=== PATIENT | female | born 1940 | race African-American/Black ===

== ENCOUNTER 2020-09-09 10:26 | Outpatient (CLI) | payer MEDICARE, OTHER | END 2020-09-09 23:59 | disposition home or self-care (01) | LOC: RAD 10:26 | DX: K21.9 Gastro-esophageal reflux disease without esophagitis (principal) | CPT/HCPCS: 74220 ==

== ENCOUNTER 2020-12-31 09:01 | Emergency (ER) | payer MEDICARE, OTHER ==
[~2020-12-31] VITALS: Ht 165.1 cm; Wt 124.8 kg
[2020-12-31] MEDS ORDERED: dexamethasone sod phosphate 10mg/ml inj IV STA (09:41)
[2020-12-31] MEDS ORDERED: normal saline 1000ML IV soln IVB ONE (09:45)
[2020-12-31] MEDS ORDERED: ketorolac tromethamine 15mg/ml inj. IV ONE (09:45)
[2020-12-31] MEDS ORDERED: proCHLORperazine 10 MG/2 ml inj IV ONE (09:45)
[2020-12-31] MEDS ORDERED: PROC-8 PO (11:09)
[2020-12-31 11:18] VITALS: BP 147/71
== END 2020-12-31 11:19 | disposition home or self-care (01) ==
LOC: ER 09:03
DX: G43.909 Migraine, unspecified, not intractable, without status migrainosus (principal); Z88.5 Allergy status to narcotic agent; Z79.899 Other long term (current) drug therapy
CPT/HCPCS: 96361; 96374; 96375; 99284; J0780; J1100; J1885; J7030

== ENCOUNTER 2022-04-30 08:15 | Emergency (ER) | payer BC, MEDICARE, OTHER ==
[~2022-04-30] VITALS: Ht 165.1 cm; Wt 120.0 kg
[~2022-04-30 08:15] MED LIST: PROC-8 PO
[2022-04-30 08:23] VITALS: BP 156/80
[2022-04-30] MEDS ORDERED: dexamethasone sod phosphate 10mg/ml inj IV STA (10:22)
[2022-04-30] MEDS ORDERED: normal saline 1000ML IV soln IVB ONE (10:25)
[2022-04-30] MEDS ORDERED: metoclopramide 5 mg/ml inj IV ONE (10:25)
[2022-04-30] MEDS ORDERED: ketorolac trometh. 30mg/ml inj. IV ONE (10:25)
[2022-04-30] MEDS ORDERED: LORazepam 2 mg/ml vial IV ONE (10:25)
== END 2022-04-30 12:28 | disposition home or self-care (01) ==
LOC: ER 08:16
DX: G43.909 Migraine, unspecified, not intractable, without status migrainosus (principal); M54.9 Dorsalgia, unspecified; M54.2 Cervicalgia; K21.9 Gastro-esophageal reflux disease without esophagitis; Z88.5 Allergy status to narcotic agent; Z79.899 Other long term (current) drug therapy
CPT/HCPCS: 96361; 96374; 96375; 99284; J1100; J1885; J2060; J2765; J7030